=== PATIENT | male | born 1995 | race Caucasian/White ===

== ENCOUNTER 2021-02-17 16:34 | Emergency (ER) | payer OTHER ==
[2021-02-17 16:51] VITALS: BP 126/86; PULSE 106; TEMP 98; BMI 19.3
[2021-02-17] MEDS ORDERED: KETOROLAC TROMETHAMINE 60 MG/2 ML VIAL IM ONE (17:34)
[2021-02-17] MEDS ORDERED: KETOROLAC TROMETHAMINE 30 MG/1 ML VIAL ONE (17:45)
== END 2021-02-17 19:24 | disposition home or self-care (01) ==
LOC: JERFT 16:34
PROC: 3E0233Z Introduction of Anti-inflammatory into Muscle, Percutaneous Approach (ICD-10-PCS; principal; 2021-02-17)
DX: M54.50 Low back pain, unspecified (principal); M25.532 Pain in left wrist; W17.89XA Other fall from one level to another, initial encounter
CPT/HCPCS: 72100-TC-FY; 73110-TC-LT-FY; 73130-TC-LT-FY; 99284-25